=== PATIENT | male | born 2000 | race Caucasian/White ===

== ENCOUNTER 2020-10-31 13:46 | Emergency (ER) | payer OTHER, SELFPAY ==
[2020-10-31 14:06] VITALS: BP 139/85; PULSE 80; RESP 16; TEMP 36.6; O2SAT 98
[2020-10-31 14:11] VITALS: BP 139/85; PULSE 80; RESP 16; TEMP 36.6; O2SAT 98
--- NOTE | 2020-10-31 14:11 | ED.ABDPAIN ---
HPI - Abdominal Pain General Chief Complaint: Abdominal Pain Stated Complaint: heartburn Source: patient and RN notes reviewed Limitations: no limitations History of Present Illness HPI narrative: The patient, who is a drinker/non-smoker, presents with epigastric pain. Patient states he has 1 to 2-day worsening of couple year history of epigastric pain since mid week. This was associated with vomiting x1 then only ; no fever, stool changes [darker/dipper clock and watch hands], blood, wt loss, wheeze now; no URI, diarrhea, cough, loss of taste/smell. Symptoms are mild, slightly worse with position change and associated with acid taste in mouth. Patient advised to discontinue alcohol [last use Monday, 3 beers], and NSAIDs [which he takes for mechanical pain, including of L. axilla]. Patient restarted omeprazole ; advised he may have several other competing diagnoses [pancreatitis, PUD, etc.] and go to hospital if not improved. Also discussed to continue the high-dose omeprazole for about a month; and will add lidocaine, Pepcid at higher dose- for 2 weeks Related Data Home Medications Medication Instructions Recorded Confirmed albuterol sulfate 2 inh INHALATION DIRECTED 10/31/20 10/31/20 cetirizine 10 mg PO DAILY 10/31/20 10/31/20 fluticasone propion-salmeterol 1 inh INHALATION DIRECTED 10/31/20 10/31/20 [Jeremias Inhub] montelukast 10 mg PO DAILY 10/31/20 10/31/20 Allergies Allergy/AdvReac Type Severity Reaction Status Date / Time No Known Allergies Allergy Mild Verified 10/31/20 14:08 Review of Systems Review of Systems: Narrative: General/Constitutional: No weight loss,fever Eyes: N0: Redness,discharge Ears/Nose/Throat: No: Epistaxis,ear discharge Respiratory: Denies: Hemoptysis Gastrointestinal: No Vomiting now, Bleeding-rectal Skin: No Lumps, eruption Neurologic: No Focal Weakness,Sz Hematologic: Denies: Petechiae/Purpura Psychiatric: No: Suicida ideationl All Other Systems: Reviewed and Negative PMFSH Comments At time of signature, agree with nursing past medical, surgical, social and family history. There is no relevant family history pertinent to the presenting complaint Exam Narrative: Exam Narrative: General Appearance: Well appearing, No distress EYE: PERRLA, Conjunctiva clear Ears: External ear normal Nose: Normal nose Mouth/Throat: Normal appearing, Normal lips Neck: Supple Respiratory: Airway patent, No respiratory distress Cardiovascular: RRR Abdomen: Soft, Non-tender, No massess, No organomegaly (no rebound/ surgical signs), Musculoskeletal: Full ROM Skin: Warm, Dry Neurological: A&O x3, CN II-X intact Psychiatric: Normal mood, Normal affect Course Vital Signs Vital signs: Vital Signs Temperature 97.9 F 10/31/20 14:06 Pulse Rate 80 10/31/20 14:06 Respiratory Rate 16 10/31/20 14:06 Blood Pressure 139/85 10/31/20 14:06 Pulse Oximetry 98 10/31/20 14:06 Temperature 97.9 F 10/31/20 14:11 Pulse Rate 80 10/31/20 14:11 Respiratory Rate 16 10/31/20 14:11 Blood Pressure 139/85 10/31/20 14:11 Pulse Oximetry 98 10/31/20 14:11 Discharge Plan Discharge Clinical Impression: GERD (gastroesophageal reflux disease) Qualifiers: Esophagitis presence: esophagitis presence not specified Qualified Code(s): K21.9 - Gastro-esophageal reflux disease without esophagitis Vomiting Qualifiers: Vomiting type: unspecified Vomiting Intractability: non-intractable Nausea presence: without nausea Qualified Code(s): R11.11 - Vomiting without nausea Patient Disposition: Home, Self-Care Condition: Stable Instructions: Antibiotic Form Prescriptions: New Lidocaine Viscous 2 % solution 5 ml MUCOUS MEM QID PRN (Reason: pain) Qty: 100 RF: 3 omeprazole 20 mg capsule,delayed release(DR/EC) 20 mg PO BID Qty: 60 RF: 2 sucralfate [Carafate] 1 gram tablet 1 g PO BID PRN (Reason: GERD) Qty: 20 RF: 1 famotidine [Pepcid] 20 mg tablet 20 mg PO B
== END 2020-10-31 14:38 | disposition home or self-care (01) ==
PROVIDERS: Emergency Provider Emergency Medicine; PCP Family Medicine
DX: K21.9 Gastro-esophageal reflux disease without esophagitis (principal); R11.11 Vomiting without nausea
CPT/HCPCS: 99213; G0463

== ENCOUNTER 2022-10-27 20:33 | Emergency (ER) | payer OTHER, SELFPAY ==
[2022-10-27] VITALS (9 sets, daily range): BP systolic 105–144; BP diastolic 41–79; PULSE 119–151; RESP 18–34; TEMP 38.8; O2SAT 95–100
--- NOTE | ~2022-10-27 | CT_ITS ---
Clinical Indication: Dyspnea CT Scan of the Chest with Contrast: Technique: Contiguous sections were acquired throughout the chest after intravenous administration of 100 cc of Omnipaque 350. Dose reduction technique was used on this scan by utilizing automated expos ure control and iterative reconstruction technique. The dose-length product (DLP) was 381.52 mGy-cm. Findings: There is no evidence of any significant mediastinal, hilar or axillary lymphadenopathy. There is no f illing defect in the pulmonary arterial tree to suggest pulmonary embolus. There is no evidence of ao rtic dissection or aneurysm. There is no evidence of pleural or pericardial effusion. There is a large area of cavitary consolidation in the left lower lobe, measuring approximately 7.0 x 6.5 x 7.4 cm in extent (coronal image 78, axial image 74 for example). There is minimal patchy groun dglass opacity in the right lung base, likely dependent hypoventilatory change. Images through the upper abdomen reveal punctate nonobstructing left renal stones. Impression: 7.0 x 6.5 x 7.4 cm area of thick-walled cavitary consolidation in the left lower lobe. This is most c ompatible with necrotizing pneumonia/pulmonary abscess. Cavitary neoplasm unlikely given young age of the patient. No pulmonary embolus. Punctate nonobstructing left renal stones. Reviewed, dictated and finalized at [facility]. Impression: 7.0 x 6.5 x 7.4 cm area of thick-walled cavitary consolidation in the left lowe r lobe. This is most compatible with necrotizing pneumonia/pulmonary abscess. C avitary neoplasm unlikely given young age of the patient. No pulmonary embolus. Punctate nonobstructing left renal stones.
--- NOTE | ~2022-10-27 | XR_ITS ---
XR chest 1V portable DATE: 10/27/2022 21:15 INDICATION: Cough TECHNIQUE: Portable upright AP chest on 10/27/2022 at 2112 hours COMPARISON: 12/18/2012 PA and lateral chest FINDINGS: There is patchy consolidating left lower lobe infiltrate suggesting pneumonia. The lungs ot herwise appear clear. No pleural effusion or pulmonary vascular or pneumothorax. Normal heart size. No hilar or mediastinal enlargement. IMPRESSION: Patchy consolidating infiltrate, left lower lobe, likely due to pneumonia Reviewed, dictated and finalized at [facility]. IMPRESSION: Patchy consolidating infiltrate, left lower lobe, likely due to pne umonia
--- NOTE | 2022-10-27 21:05 | ECG_ITS ---
Measurements Intervals [place] Rate: 136 P: 60 NH: 134 QRS: 52 QRSD: 89 T: 26 QT: 280 QTc: 422 Interpretive Statements SINUS TACHYCARDIA ABNORMAL ECG NO PREVIOUS ECG AVAILABLE FOR COMPARISON Electronically Signed On 10-28-2022 6:35:13 CDT by Jake Carrasco D.O.
[2022-10-27] MEDS: ALBUTEROL SULFATE NEB 2.5 MG/3 ML INH INHALATION (21:45)
[2022-10-27] MEDS: IPRATROPIUM BR 0.02% INH SOLN 0.5 MG/2.5 ML VIAL INHALATION (21:45)
[2022-10-27 21:54] LABS: Basophils Absolute Auto 0.1 K/mm3 (0.0-0.1); Basophils Percent Auto 0.3 % (0.2-1.2); Eosinophils Percent Auto 0.1 % (0-4.4); Hematocrit 41.7 % (42.0-52.0); Immature Granulocyte Absolute 0.08 K/mm3 (0.00-0.031); Immature Granulocyte Percent A 0.5 % (0-0.5); Lymphocytes Absolute Auto 0.71 K/mm3 (0.9-3.2); Lymphocytes Percent Auto 4.6 % (18.3-44.2); Mean Corpuscular HGB Conc 33.6 g/dl (32-36); Mean Corpuscular Hemoglobin 30.4 pg (26-34); Mean Corpuscular Volume 90.5 fl (80-100); Mean Platelet Volume 9.4 fl (7.4-10.4); Monocytes Percent Auto 6.6 % (2.6-8.5); Neutrophils Absolute Auto 13.7 K/mm3 (1.3-6.7); Neutrophils Percent Auto 87.9 % (45.5-73.1); Platelet Count Result 333 k/mm3 (150-375); Red Blood Count 4.61 M/mm3 (4.6-6.20); Red Cell Distribution Width 12.3 % (11.5-14.5); White Blood Count 15.6 K/mm3 (4.5-10.0)
[2022-10-27 22:02] LABS: Lactic Acid Reflex 1.5 mmol/L (0.7-2.0)
[2022-10-27 22:04] LABS: Alanine Aminotransferase 31 U/L (6-50); Alkaline Phosphatase 169 U/L (38-126); Anion Gap 6 mmol/L (8-16); Aspartate Amino Transferase 28 U/L (17-59); Bilirubin,Total 0.7 mg/dL (0.2-1.3); Blood Urea Nitrogen 16 mg/dL (9-20); Calcium 8.5 mg/dL (8.4-10.2); Carbon Dioxide 29 mmol/L (22-30); Chloride 103 mmol/L (98-107); Estimated Glomerular Filt Rate > 60; Glucose 127 mg/dL (65-110); Potassium 3.7 mmol/L (3.4-5.0); Sodium 138 mmol/L (137-145)
[2022-10-27 22:09] LABS: Appearance Urine Clear (Clear); Bacteria Urine None Seen /hpf; Bilirubin Urine Negative (Negative); Blood Urine Negative (Negative); Color Urine Yellow (Yellow); Glucose Urine UA Negative (Negative); Ketones Urine Negative (Negative); Leukocyte Esterase Ur Negative LEU/UL (Negative); Nitrate Urine Negative (Negative); Non Pathogenic Casts 0-2; Protein Urine Trace mg/dL (Negative); RBC Urine 0-2 /hpf (0-2); Specific Grav Ur 1.025 (1.001-1.035); Squamous Epithelial Cell Urine None seen /hpf (Few); WBC Urine 0-5 /hpf; pH Urine 5.5 (5.0-9.0)
[2022-10-27 22:11] LABS: Add Urine Microscopic? YES
[2022-10-27 22:30] LABS: Procalcitonin 0.1 ng/mL
[2022-10-27 22:34] LABS: Influenza A QL RT-PCR Negative (Negative); Influenza B QL RT-PCR Negative (Negative); SARS-CoV-2 RNA PCR Negative
[2022-10-27] MEDS: SODIUM CHLORIDE 0.9% IV 1,000 ML 999 ML IV CONT ×2 (22:34→23:43)
[2022-10-27] MEDS: IPRATROPIUM BR 0.02% INH SOLN 0.5 MG/2.5 ML VIAL 1 MG INHALATION (23:10)
[2022-10-27] MEDS: ALBUTEROL SULFATE NEB 2.5 MG/3 ML INH 10 MG INHALATION (23:11)
[2022-10-27] MEDS: DOXYCYCLINE 100 MG/NS 100 ML 100 MG/100 ML BAG IVPB (23:21)
[2022-10-27] MEDS: ONDANSETRON INJ 4 MG/2 ML VIAL IV PUSH (23:43)
[2022-10-27] MEDS: MORPHINE SULFATE (*CRX) 4 MG/ML INJ IV PUSH (23:51)
[2022-10-28] VITALS (26 sets, daily range): BP systolic 103–131; BP diastolic 52–75; PULSE 86–127; RESP 16–33; O2SAT 96–100
[2022-10-28] MEDS: PIPERACILLN/TAZ 3.375GM/NS50ML 3.375 GM/50 ML BAG IVPB (02:48)
--- NOTE | 2022-10-28 02:49 | ED.GENADULT ---
HPI - General Adult General Chief complaint: Upper Respiratory Infection Stated complaint: upper resp infection Time Seen by Provider: 10/27/22 21:00 History of Present Illness HPI narrative: Patient is a 22-year-old gentleman who presents the emergency department with chief complaint of fever tachycardia and possible pneumonia. Patient reports that about a week ago he was treated by his primary care provider for an asthma exacerbation and pneumonia. The patient was started on Zithromax and has completed 5 days of Zithromax and has been on prednisone. The patient states that he has had a cough has been productive of turner sputum the patient reports that he also feels short of breath and feels tachycardic. Related Data Home Medications Medication Instructions Recorded Confirmed albuterol sulfate 90 mcg/actuation 2 inh inhalation DIRECTED 10/31/20 10/31/20 aerosol inhaler cetirizine 10 mg tablet 10 mg PO DAILY 10/31/20 10/31/20 fluticasone 500 mcg-salmeterol 50 1 inh inhalation DIRECTED 10/31/20 10/31/20 mcg/dose blistr powdr for inhalation (Wixela Inhub) montelukast 10 mg tablet 10 mg PO DAILY 10/31/20 10/31/20 Allergies Allergy/AdvReac Type Severity Reaction Status Date / Time No Known Allergies Allergy Mild Verified 07/28/21 16:17 Review of Systems Review of Systems: A 10 system review of systems was completed on the patient and is negative except for what is stated in the HPI. Nursing and ancillary documentation was reviewed. [facility] Social History Social History Second hand tobacco smoke exposure: No Exam Narrative: GENERAL: Ill-appearing, well-nourished, and in no acute distress. HEAD: Normocephalic, atraumatic. EYES: PERRLA and EOMI. ENT: Nares clear, no rhinorrhea or epistaxis. Mucous membranes moist. NECK: Supple. CHEST: Clear to auscultation. Increased respiratory drive. HEART: Tachycardic rate and rhythm. No murmur heard. Normal peripheral pulses. ABDOMEN: Soft, nontender, nondistended, normal active bowel sounds. EXTREMITIES: Normal range of motion. No edema. SKIN: Warm, dry, no rash. NEURO: No focal deficits. Alert and oriented x3. PSYCH: Normal mood and affect. Course Course Emergency Course: Differential diagnosis includes pneumonia, pulmonary embolism, pulmonary abscess, necrotizing pneumonia, COVID-19 Fluid resuscitation and antipyretics were began upon initial arrival. Chest x-ray showed evidence of pneumonia. The patient was empirically started on doxycycline at that point. Laboratory studies showed a white blood cell count of 15.6 and a lactic acid of 1.5 and a procalcitonin of 0.1. Urinalysis was negative COVID and flu was negative Due to the patient's tachycardia and shortness of breath a CT pulmonary embolism protocol was ordered. This showed no evidence of pulmonary embolism but there was a 7.5 cm area of consolidation in the left lower lobe with a 4.5 cm thick-walled cavitation lesion concerning for necrotizing pneumonia/pulmonary abscess. The case was discussed with our local hospitalist and due to the abscess and necrotizing pneumonia they recommended the patient be transferred to a facility with cardiothoracic availability. It was discussed with the patient and the patient's family and they opted for the [facility] system. Currently there is a wait for [facility] and there is a possibility for bed availability at [facility] where they do have cardiothoracic available the case was discussed with the hospitalist Dr. Lagos and the patient was accepted. The patient was also started on vancomycin and Zosyn given that this is a pulmonary abscess and necrotizing pneumonia. Vital Signs Vital signs: Vital Signs Temperature 38.8 C H 10/27/22 20:52 Pulse Rate 141 H 10/27/22 20:52 Respiratory Rate 18 10/27/22 20:52 Blood Pressure 130/79 10/27/22 20:52 Pulse Oximetry 97 10/27/22 20:52 Oxygen D
--- NOTE | 2022-10-28 04:17 | PC.NURSE ---
[id number] Called [facility], spoke with Jay. Updated on pt eta, will call report to day shift due to estimated ambulance arrival time at [facility] approx 0630 this morning.
[2022-10-28] MEDS: MORPHINE SULFATE (*CRX) 4 MG/ML INJ IV PUSH (05:58)
[2022-10-28] MEDS: IPRATROPIUM BR 0.02% INH SOLN 0.5 MG/2.5 ML VIAL INHALATION (08:04)
--- NOTE | 2022-10-28 12:30 | PC.NURSE ---
due to previous call by another transport. brain gutierrez contacted. states did not receive report on this pt either. questions about medication administration reviewed and advised that i was on duty all day and to call back if any further questions or concerns.
== END 2022-10-28 08:10 | disposition short-term general hospital (02) ==
PROVIDERS: Emergency Provider Emergency Medicine; PCP Family Medicine
DX: J85.1 Abscess of lung with pneumonia (principal); D72.829 Elevated white blood cell count, unspecified; J96.90 Respiratory failure, unspecified, unspecified whether with hypoxia or hypercapnia; Z20.822 Contact with and (suspected) exposure to COVID-19
CPT/HCPCS: 36415; 71045; 71275; 80053; 81001; 83605; 84145; 85025; 87081; 87636; 93005; 94640; 96361; 96365; 96367; 96375; 99285; J0131; J2270; J2405; J2543; J3370; J7030; Q9967